=== PATIENT | male | born 1990 | race Caucasian/White ===

== ENCOUNTER 2018-06-01 10:55 | Emergency (ER) | payer SELFPAY ==
[2018-06-01 11:19] VITALS: BP 141/84; PULSE 89; RESP 16; TEMP 98.3; O2SAT 97
[2018-06-01] MEDS ORDERED: Clindamycin 300 MG in Sodium Chloride 0.9% 50 ML IVPB STA (11:32)
[2018-06-01] MEDS ORDERED: Clindamycin 600mg/50ml NS 600 MG/50 ML BAG IVPB ONE (11:40)
--- NOTE | 2018-06-01 11:51 | C.PDOC ---
History Of Present Illness 28 y/o male pt presents to the ER c/o x1 week multiple abscess on left upper forearm, right hip and left underarm. Pt denies fever, chills, nausea and vomiting. Time Seen by Provider: 06/01/18 11:13 Chief Complaint (Nursing): Abnormal Skin Integrity History Per: Patient History/Exam Limitations: no limitations Onset/Duration Of Symptoms: Days (x1 week) Current Symptoms Are (Timing): Still Present Past Medical History Reviewed: Historical Data, Nursing Documentation, Vital Signs Vital Signs: Last Vital Signs Temp 98.3 F 06/01/18 11:17 Pulse 89 06/01/18 11:17 Resp 16 06/01/18 11:17 BP 141/84 06/01/18 11:17 Pulse Ox 97 06/01/18 11:17 - Medical History PMH: Hypercholesterolemia Family History: States: Unknown Family Hx - Social History Hx Alcohol Use: No Hx Substance Use: No - Immunization History Hx Tetanus Toxoid Vaccination: No Hx Influenza Vaccination: Yes Hx Pneumococcal Vaccination: No Review Of Systems Constitutional: Negative for: Fever, Chills Gastrointestinal: Negative for: Nausea, Vomiting Musculoskeletal: Positive for: Arm Pain (left forearm abscess + pain ), Other (right hip abscess + pain; Left underarm abscess + pain ) Physical Exam - Physical Exam Appears: Non-toxic, No Acute Distress Skin: Warm, Dry, No Rash Head: Normacephalic Cardiovascular: Rhythm Regular Respiratory: Normal Breath Sounds Extremity: Normal ROM (x4), Capillary Refill (<2 sec), No Deformity, Other (left forearm: 3-4 central pustule abscess abscess with surrounding erythema; Right hip: 4-5 cm central pustule abscess with surrounding erythema; Left axilla: central pustule ) Neurological/Psych: Oriented x3, Normal Speech, Normal Cognition, Normal Motor, Normal Sensation ED Course And Treatment O2 Sat by Pulse Oximetry: 97 (RA) Pulse Ox Interpretation: Normal Progress Note: Impression: multiple abscesses. Plans: -- Toradol. -- Clindamy chandana. Reassess: Patient is resting comfortably and is informed about his abscess. Pt is told he will receive antibiotics to help with the abscess. Patient was instructed to follow up with physician/clinic in 1-2 days for further evaluation Disposition Counseled Patient/Family Regarding: Diagnosis, Need For Followup, Rx Given - Disposition Referrals: [facility] [Outside] Disposition: HOME/ ROUTINE Disposition Time: 12:15 Condition: STABLE Additional Instructions: FOLLOW UP IN THE MEDICAL CLINIC IN 1-2 DAYS TAKE ANTIBIOTICS UNTIL FINISHED USE PAIN MEDICATION NEEDED RETURN TO EMERGENCY ROOM IF YOUR SYMPTOMS BECOME WORSE SEGUIR EN LA CLNICA MDICA EN 1-2 HARTLEY MIGUEL ANTIBIOTICOS HASTA TERMINAR UTILICE MEDICAMENTOS PARA EL DOLOR SEGN LO NECESARIO VUELVA A LA JOSIANE DE EMERGENCIA SI MONTY SNTOMAS SE HACEN PEOR Prescriptions: Clindamycin [Cleocin] 300 mg PO TID #21 cap Naproxen [Naprosyn] 1 tab PO BID PRN #25 tab PRN Reason: Pain Instructions: Boil (DC), Cellulitis (Skin Infection), Adult (DC) Forms: [employer] (Moroccan) Print Language: [place] ISLAND[place] - Clinical Impression Clinical Impression: Cellulitis of left elbow, Cellulitis of right hip, Abscess of right hip, Abscess of left arm - Scribe Statement The provider has reviewed the documentation as recorded by the Chai Beltran Do Provider Attestation: All medical record entries made by the Scribe were at my direction and personall y dictated by me. I have reviewed the chart and agree that the record accurately reflects my personal performance of the history, physical exam, medical decision making, and the department course for this patient. I have also personally directed, reviewed, and agree with the discharge instructions and disposition.
--- NOTE | 2018-06-01 12:01 | C.PDOC ---
Time Seen by Provider: 06/01/18 11:13 Chief Complaint (Nursing): Abnormal Skin Integrity Past Medical History Vital Signs: Last Vital Signs Temp 98.3 F 06/01/18 11:17 Pulse 89 06/01/18 11:17 Resp 16 06/01/18 11:17 BP 141/84 06/01/18 11:17 Pulse Ox 97 06/01/18 11:17 - Medical History PMH: Hypercholesterolemia Family History: States: Unknown Family Hx - Social History Hx Alcohol Use: No Hx Substance Use: No - Immunization History Hx Tetanus Toxoid Vaccination: No Hx Influenza Vaccination: Yes Hx Pneumococcal Vaccination: No ED Course And Treatment O2 Sat by Pulse Oximetry: 97 Disposition - Disposition
== END 2018-06-01 12:31 | disposition home or self-care (01) ==
LOC: C.ER 10:55
DX: L03.114 Cellulitis of left upper limb (principal); L03.115 Cellulitis of right lower limb; L02.415 Cutaneous abscess of right lower limb; L02.414 Cutaneous abscess of left upper limb
CPT/HCPCS: 96365; 96375; 99283; J1885